=== PATIENT | female | born 1985 | race Caucasian/White ===

== ENCOUNTER 2018-02-05 20:08 | Emergency (ER) | payer SELFPAY ==
[~2018-02-05] VITALS: Ht 162.6 cm; Wt 65.8 kg
[2018-02-05 20:10] VITALS: BP 127/88
[2018-02-05] MEDS ORDERED: CLINDAMYCIN 600 MG/4 ML VL IM ONE (22:00)
== END 2018-02-05 22:54 | disposition home or self-care (01) ==
LOC: EDSEX 20:15 → ER 20:15
DX: L02.413 Cutaneous abscess of right upper limb (principal); F17.210 Nicotine dependence, cigarettes, uncomplicated; W57.XXXA Bitten or stung by nonvenomous insect and other nonvenomous arthropods, initial encounter; Y93.89 Activity, other specified; Y99.8 Other external cause status; Y92.89 Other specified places as the place of occurrence of the external cause
CPT/HCPCS: 96372

== ENCOUNTER 2018-05-22 16:42 | Inpatient (IN) | payer SELFPAY ==
[~2018-05-22] VITALS: Ht 167.6 cm; Wt 68.0 kg
[2018-05-22] MEDS ORDERED: SODIUM CHLORIDE 0.9% 1,000 ML IV ONE ×2 (16:43)
[2018-05-22 17:10] LABS: Basophils # (auto) 0 uL; Basophils % (auto) 0.3 % (0.0-2.0); Eosinophils # (auto) 0.2 uL; Eosinophils % (auto) 2.9 % (0.0-7.0); Hematocrit 40.5 % (36.0-46.0); Hemoglobin 13.8 g/dL (12.2-16.2); Lymphocytes # (auto) 1.5 uL; Lymphocytes % (auto) 18.3 % (10.0-50.0); Mean Corpuscular Hemoglobin 30.9 pg (28.0-32.0); Mean Corpuscular Volume 90.9 fL (80.0-100.0); Monocytes # (auto) 0.7 uL; Monocytes % (auto) 8.6 % (0.0-12.0); Neutrophils # (auto) 5.7 uL; Neutrophils % (auto) 69.9 % (37.0-80.0); Nucleated Red Blood Cells % 0.1 %; Platelet Count (auto) 196 10^3/uL (140-450); Red Blood Cells 4.45 10^6/uL (4.0-5.20); Red Cell Distribution Width 13.4 % (11.8-14.3); White Blood Cell 8.1 10^3/uL (4.4-10.8)
[2018-05-22 17:12] LABS: Urine Bacteria NONE SEEN /hpf (None Seen); Urine Blood Negative /uL (Negative); Urine Specific Gravity 1.021 (1.001-1.035); Urine WBC 9 /hpf (0 - 5)
[2018-05-22 17:24] LABS: INR 0.95 (0.9-1.15); Partial Thromboplastin Time 26.4 sec (23.78-33.04); Prothrombin Time 10.2 sec (9.27-12.13)
[2018-05-22 17:26] LABS: Albumin 3.3 g/dL (3.4-5.0); Anion Gap 5 (5-15); Blood Urea Nitrogen 23 mg/dL (7-18); Calcium 7.9 mg/dL (8.5-10.1); Carbon Dioxide 30 mmol/L (21-32); Chloride 105 mmol/L (98-107); Glucose 96 mg/dL (74-106); Sodium 140 mmol/L (136-145)
[2018-05-22 17:28] LABS: BUN/Creatinine Ratio 26.7; GFR African American > 60 mL/min; GFR Non-African American > 60 mL/min
[2018-05-22] MEDS ORDERED: cefTRIAXone 1GM/50ML D5W 50 ML IV ONE (17:30)
[2018-05-22 17:31] LABS: Alcohol, Urine < 3.0 mg/dL (0-5); Amphetamine Screen, Urine POSITIVE (NEGATIVE); Barbiturate Scree,Urine NEGATIVE (NEGATIVE); Benzodiazephine Screen, Urine NEGATIVE (NEGATIVE); Cannabinoid Screen, Urine POSITIVE (NEGATIVE); Cocaine Screen, Urine NEGATIVE (NEGATIVE); Opiate Scree,Urine NEGATIVE (NEGATIVE); Phencyclidine Screen, Urine NEGATIVE (NEGATIVE)
[2018-05-22 17:34] LABS: Alanine Aminotransferase 22 U/L (13-56); Alkaline Phosphatase 73 U/L (45-117); Aspartate Aminotransferase 17 U/L (15-37); Bilirubin, Total 0.6 mg/dL (0.2-1.0); Total Protein 6.8 g/dL (6.4-8.2)
[2018-05-22] MEDS ORDERED: traMADol HCL 50 MG TAB PO PRN (20:15)
[2018-05-22] MEDS ORDERED: LORazepam 2MG/ML-1ML VIAL IV PRN (20:15)
[2018-05-22] MEDS ORDERED: ACETAMINOPHEN 500 MG TAB PO PRN (20:15)
[2018-05-22] MEDS: SODIUM CHLORIDE 0.9% 1,000 ML IV SCH (20:30)
[2018-05-22 22:00] VITALS: BP 125/70
--- NOTE | 2018-05-22 22:00 | NUR ---
MS admit from ER KIYA BONILLA admitted to tele/MS after SBAR received. Patient oriented to Angelique Bueno, primary RN, unit, room, bed, and unit policies regarding patient care and visiting hours. Patient weighed by bedscale and encouraged to call if they need something. All questions and concerns addressed, patient verbalized understanding. Note:
[2018-05-22] MEDS: FAMOTIDINE 20 MG TAB PO SCH (22:38)
[2018-05-23] MEDS: SODIUM CHLORIDE 0.9% 1,000 ML IV SCH ×3 (04:03→14:45)
[2018-05-23 04:51] VITALS: BP 108/64
[2018-05-23 05:28] LABS: Basophils # (auto) 0 uL; Basophils % (auto) 0.3 % (0.0-2.0); Eosinophils # (auto) 0.3 uL; Eosinophils % (auto) 3.9 % (0.0-7.0); Hematocrit 36.6 % (36.0-46.0); Hemoglobin 12.4 g/dL (12.2-16.2); Lymphocytes # (auto) 2.7 uL; Mean Corpuscular Hemoglobin 30.9 pg (28.0-32.0); Mean Corpuscular Hgb Conc. 33.9 g/dL (32.0-36.0); Mean Corpuscular Volume 91.1 fL (80.0-100.0); Monocytes # (auto) 0.5 uL; Monocytes % (auto) 6.9 % (0.0-12.0); Neutrophils # (auto) 3.8 uL; Neutrophils % (auto) 51.9 % (37.0-80.0); Platelet Count (auto) 181 10^3/uL (140-450); Red Blood Cells 4.01 10^6/uL (4.0-5.20); Red Cell Distribution Width 13.6 % (11.8-14.3); White Blood Cell 7.3 10^3/uL (4.4-10.8)
[2018-05-23 05:37] LABS: Anion Gap 4 (5-15); BUN/Creatinine Ratio 21.2; Blood Urea Nitrogen 14 mg/dL (7-18); Calcium 7.4 mg/dL (8.5-10.1); Carbon Dioxide 25 mmol/L (21-32); Chloride 109 mmol/L (98-107); GFR African American > 60 mL/min; GFR Non-African American > 60 mL/min; Glucose 83 mg/dL (74-106); Magnesium 1.9 mg/dL (1.6-2.6); Potassium 3.5 mmol/L (3.5-5.1); Sodium 138 mmol/L (136-145)
[2018-05-23 08:30] VITALS: BP 116/63
[2018-05-23] MEDS: FAMOTIDINE 20 MG TAB PO SCH ×2 (09:35→21:52)
[2018-05-23 12:30] VITALS: BP 95/50
[2018-05-23] MEDS ORDERED: MAGNESIUM SULFATE 1GM/100ML 100 ML IV ONE (14:45)
[2018-05-23 17:19] VITALS: BP 98/67
--- NOTE | 2018-05-23 18:24 | NUR ---
Ramsey catheter dc'd Order to discontinue ramsey catheter. Ramsey dc'd with clean technique following deflation of balloon. Patient tolerated well with no complaints of pain. Continue care.
--- NOTE | 2018-05-23 19:33 | NUR ---
RECEIVED PATIENT FROM DAY SHIFT RN. PATIENT RESTING IN BED. NO S/S OF DISTRESS NOTED. DENIED PAIN FOR NOW. POC INSTRUCTED AND ENCOURAGED PATIENT TO CALL FOR MACHINE RIGGER IF NEEDED. BED IN LOWEST POSITION WITH SIDE RAILS UP X 2. CALL [facility] WITHIN REACH. CONTINUE TO MONITOR FOR CHANGES Q1H AND PRN.
--- NOTE | 2018-05-23 21:10 | NUR ---
PATIENT WALKED TO BATHROOM AND BACK TO BED WITH STEADY GAIT. NO S/S OF DISTRESS NOTED. URINATED WELL. CONTINUE TO MONITOR.
[2018-05-23 22:00] VITALS: BP 102/57
--- NOTE | 2018-05-24 01:58 | NUR ---
URINE SAMPLE COLLECTED AND SENT. CONTINUE CARE.
--- NOTE | 2018-05-24 03:58 | NUR ---
PATIENT SLEEPING. NO S/S OF DISTRESS NOTED. BED IN LOWEST POSITION. CALL [facility] WITHIN REACH. CONTINUE CARE.
[2018-05-24 05:03] VITALS: BP 96/67
[2018-05-24] MEDS: SODIUM CHLORIDE 0.9% 1,000 ML IV SCH (07:25)
[2018-05-24 07:38] LABS: Potassium 3.9 mmol/L (3.5-5.1)
[2018-05-24 07:51] LABS: Magnesium 2.2 mg/dL (1.6-2.6)
[2018-05-24 08:46] VITALS: BP 96/57
[2018-05-24] MEDS: FAMOTIDINE 20 MG TAB PO SCH (09:49)
--- NOTE | 2018-05-24 10:05 | NUR ---
SPOKE TO HOSPITALIST I SPOKE TO MD JOHNSON, AWARE OF PATIENTS STATUS. AWAITING NEW ORDERS AT THIS TIME.
--- NOTE | 2018-05-24 11:58 | NUR ---
Spoke to Hospitalist I spoke to MD Abrams, new orders received for d/c home today. Pt's BP is 103/57, per MD Cheng patient okay to be d/c'd. Will d/c as ordered.
[2018-05-24 12:11] VITALS: BP 103/57
--- NOTE | 2018-05-24 15:30 | NUR ---
Pt not found in room upon entering room to go over pt's d/c instructions pt was not found in room. Per REGULATOR PIN INSERTER pt walked out about "4 mins ago and said she will be right back she's just going to go put her belongings in the car". Overhead paged patient to return to room
--- NOTE | 2018-05-24 15:44 | NUR ---
Spoke to security I spoke to security and had them look for patient in the parking lot, they state they will look for her. Pt possibly left with IV in place, No IV was found anywhere in the room.
--- NOTE | 2018-05-24 16:13 | NUR ---
Spoke to [facility]'s dispatch I spoke to Mary at the [facility] dispatch, I informed her pt left with IV in place and gave her a description of patient. According to CLINT Mccall patient was wearing talley hooded sweater with red writing on it, hair up in a bun. I attempted to call pt phone number in chart [phone] but is says is disconnected at this time. I also called "Sancho Rios" at [phone] and unable to reach or leave voicemail due to voicemail full. I informed furniture finisher apprentice Barbara. Per Mary at [facility] dep, they will send someone to look for her, I provided her with hospital number and extension number.
--- NOTE | 2018-05-25 09:33 | NUR ---
assessment Patient discharged prior to being assessed. Addendum: 05/26/18 at 0934 by Mitali PATEL Amended: Links added.
== END 2018-05-24 17:00 | disposition home or self-care (01) | DRG 71 ==
LOC: ER 16:42 → OVERFLOW 20:14 → CENTRAL 22:33
PROVIDERS: ADMIT Nurse Practitioner Acute Care; ATTEND Internal Medicine
DX: G93.41 Metabolic encephalopathy (principal); E44.1 Mild protein-calorie malnutrition; F15.10 Other stimulant abuse, uncomplicated; F43.10 Post-traumatic stress disorder, unspecified; F17.200 Nicotine dependence, unspecified, uncomplicated; K21.9 Gastro-esophageal reflux disease without esophagitis; F41.9 Anxiety disorder, unspecified; X58.XXXA Exposure to other specified factors, initial encounter; Y93.89 Activity, other specified; Y92.89 Other specified places as the place of occurrence of the external cause; Y99.8 Other external cause status; Z71.51 Drug abuse counseling and surveillance of drug abuser; Z71.6 Tobacco abuse counseling; Z68.24 Body mass index [BMI] 24.0-24.9, adult; Z88.0 Allergy status to penicillin; Z88.1 Allergy status to other antibiotic agents
CPT/HCPCS: 36415; 70450; 71250; 74176; 80048; 80053; 80061; 80307; 81001; 81025; 82962; 83605; 83735; 84132; 84443; 84484; 85025; 85610; 85730; 87040; 87086; 93005; 93886; 96361; 96365; G0378; J0696